=== PATIENT | female | born 1955 | race Caucasian/White ===

== ENCOUNTER 2016-09-13 19:35 | Emergency (ER) | payer BC | END 2016-09-13 21:10 | disposition left against medical advice (07) | LOC: ER 19:35 | DX: Z53.21 Procedure and treatment not carried out due to patient leaving prior to being seen by health care provider (principal) ==

== ENCOUNTER 2016-09-14 16:00 | Day surgery (SDC) | payer BC ==
[2016-09-14] MEDS ORDERED: PROMETHAZINE HCL INJ 25 MG/1 ML VIAL ONE (17:08)
[2016-09-14] MEDS ORDERED: NALOXONE HCL INJ/PF 0.4 MG/1 ML SDV ONE (17:08)
[2016-09-14] MEDS ORDERED: GLUCAGON,HUMAN RECOMB 1 MG INJ ONE (17:09)
[2016-09-14] MEDS ORDERED: FLUMAZENIL INJ 0.5 MG/5 ML VIAL IV ONE (17:09)
[2016-09-14] MEDS ORDERED: EPINEPHRINE INJ 1 MG/10 ML DISP.SYRIN ONE (17:09)
[2016-09-14] MEDS ORDERED: ONDANSETRON HCL INJ/PF 4 MG/2 ML SDV ONE (17:10)
[2016-09-14] MEDS: MIDAZOLAM 2 MG/2 ML INJ ONE ×3 (18:08→18:18)
[2016-09-14] MEDS: FENTANYL CITRATE INJ/PF 100 MCG/2 ML AMPUL ONE ×2 (18:12→18:27)
[2016-09-14 19:33] VITALS: BP 116/70
== END 2016-09-14 19:35 | disposition home or self-care (01) ==
LOC: END 16:00
PROVIDERS: ATTEND Internal Medicine Gastroenterology
PROC: 0FPB8DZ Removal of Intraluminal Device from Hepatobiliary Duct, Via Natural or Artificial Opening Endoscopic (ICD-10-PCS; principal; 2016-09-14 16:30)
PROC: 0F798ZZ Dilation of Common Bile Duct, Via Natural or Artificial Opening Endoscopic (ICD-10-PCS; 2016-09-14 16:30)
DX: K83.8 Other specified diseases of biliary tract (principal); K80.50 Calculus of bile duct without cholangitis or cholecystitis without obstruction; K58.9 Irritable bowel syndrome, unspecified; Z79.899 Other long term (current) drug therapy
CPT/HCPCS: 43264; 43262; 74328; J2250; J3010; J0171; J1610; J2310; J2405; J2550; J3490

== ENCOUNTER → 2016-09-14 | Outpatient (CLI) | payer BC ==
[2016-09-14 14:23] LABS: ABSOLUTE EOSINOPHILS # (AUTO) 0.1 10^3/uL (0.0-0.6); ABSOLUTE LYMPHOCYTES (AUTO) 1.2 10^3/uL (0.5-4.7); ABSOLUTE MONOCYTES (AUTO) 0.6 10^3/uL (0.1-1.4); ABSOLUTE NEUT (AUTO) 3.6 10^3/uL (1.7-8.2); BASOPHILS % (AUTO) 0.6 % (0-2); EOSINOPHILS % (AUTO) 2.2 % (0-6); HEMATOCRIT 39.9 % (36.0-47.0); HEMOGLOBIN 13.8 g/dL (12.0-15.5); HGB HCT DIFFERENCE 1.5; LYMPHOCYTES % (AUTO) 21.2 % (13-45); MEAN CORPUSCULAR HEMOGLOBIN 30.3 pg (27.0-33.4); MEAN CORPUSCULAR HGB CONC 34.5 g/dL (32.0-36.0); MEAN CORPUSCULAR VOLUME 88 fl (80-97); MONOCYTES % (AUTO) 11.6 % (3-13); RED BLOOD COUNT 4.55 10^6/uL (3.72-5.28); RED CELL DISTRIBUTION WIDTH 13.2 % (11.5-14.0); SEGMENTED NEUTROPHILS % (AUTO) 64.4 % (42-78); WHITE BLOOD COUNT 5.6 10^3/uL (4.0-10.5)
[2016-09-14 14:28] LABS: PROTHROMBIN TIME 13.1 SEC (11.4-15.4)
[2016-09-14 14:56] LABS: ALANINE AMINOTRANSFERASE 236 U/L (9-52); ALBUMIN 4.2 g/dL (3.5-5.0); ALKALINE PHOSPHATASE 211 U/L (38-126); AMYLASE 59 U/L (30-110); ANION GAP 14 (5-19); ASPARTATE AMINO TRANSFERASE 73 U/L (14-36); BILIRUBIN,TOTAL 3.9 mg/dL (0.2-1.3); BLOOD UREA NITROGEN 10 mg/dL (7-20); CALCIUM 9.8 mg/dL (8.4-10.2); CARBON DIOXIDE 26 mmol/L (22-30); CHLORIDE 102 mmol/L (98-107); CREATININE RESULT 0.76 mg/dL (0.52-1.25); GLUCOSE 95 mg/dL (75-110); LIPASE 135.1 U/L (23-300); POTASSIUM 4.4 mmol/L (3.6-5.0); SODIUM 142.3 mmol/L (137-145); TOTAL PROTEIN 7.3 g/dL (6.3-8.2)
--- NOTE | 2016-09-14 18:50 | Operative Report ---
Operative Report DATE OF SURGERY: 09/14/16 Operative Report: Pre-op diagnosis: Recurrent abdominal pain and jaundice Post-op diagnosis: 1. Large amount of common bile duct sludge and stone 2. Dilated common bile duct Surgery: ERCP with sphincterotomy and balloon sludge/stone extraction Medications: Versed 4mg Fentanyl 150mcg IV push Tissue removed: Procedure: After informed consent obtained from patient, the throat was sprayed with Hurricane and conscious sedation was achieved. The ERCP endoscope was then inserted into the esophagus blindly and advanced into the stomach. The duodenum was entered and the ampulla was identified. There was a small periampullar diverticulum and evidence of previous partial sphincterotomy. Using the triple-lumen sphincterotomy catheter the common bile duct was freely cannulated. A cholangiogram was obtained which showed multiple filling defects within the common bile duct which was also dilated. The sphincterotomy was then extended using the endocut mode. The catheter was removed over the guidewire before a 9-12 mm balloon catheter was inserted. The balloon was inflated to 12 mm in the proximal common bile duct and pulled down the duct. The duct was swept three more time. A balloon occlusion cholangiogram was normal. The pancreatic duct was intentionally not cannulated. Patient tolerated procedure well. Findings Common bile duct: Dilated with large amount of thick sludge and a small stone. Intrahepatic ducts: Slightly dilated Pancreatic duct: Not cannulated Plan: Follow-up LFTs OPERATION: .
--- NOTE | 2016-09-14 18:51 | PDOC DISCHARGE SUMMARY ---
Discharge Summary (SDC) - Discharge Final Diagnosis: Common bile duct sludge and stone Date of Surgery: 09/14/16 Condition: Stable Discharge Diet: Other (Comments) - Low-fat diet for two days Discharge Activity: Activity As Tolerated Report the Following to Your Physician Immediately: Nausea, Vomiting, Swelling
== END ==
LOC: LAB 13:58
PROVIDERS: ATTEND Internal Medicine Gastroenterology
DX: R10.13 Epigastric pain (principal)
CPT/HCPCS: 36415; 80048; 80076; 82150; 83690; 85025; 85610

== ENCOUNTER → 2016-09-24 | Outpatient (CLI) | payer BC ==
[2016-09-24 13:44] LABS: ALANINE AMINOTRANSFERASE 63 U/L (9-52); ALBUMIN 4.9 g/dL (3.5-5.0); ALKALINE PHOSPHATASE 235 U/L (38-126); ASPARTATE AMINO TRANSFERASE 29 U/L (14-36); BILIRUBIN,DIRECT 0.5 mg/dL (0.0-0.4); BILIRUBIN,TOTAL 0.8 mg/dL (0.2-1.3); TOTAL PROTEIN 7.8 g/dL (6.3-8.2)
== END ==
LOC: OD 12:25
PROVIDERS: ATTEND Internal Medicine Gastroenterology
DX: R94.5 Abnormal results of liver function studies (principal)
CPT/HCPCS: 36415; 80076

== ENCOUNTER → 2016-10-12 | Outpatient (CLI) | payer BC ==
[2016-10-12 16:36] LABS: ALANINE AMINOTRANSFERASE 29 U/L (9-52); ALBUMIN 4.3 g/dL (3.5-5.0); ALKALINE PHOSPHATASE 105 U/L (38-126); ASPARTATE AMINO TRANSFERASE 13 U/L (14-36); BILIRUBIN,DIRECT 0.4 mg/dL (0.0-0.4); BILIRUBIN,TOTAL 0.6 mg/dL (0.2-1.3)
== END ==
LOC: OD 15:40
PROVIDERS: ATTEND Physician Assistant Surgical
DX: R94.5 Abnormal results of liver function studies (principal)
CPT/HCPCS: 36415; 80076

== ENCOUNTER 2018-12-24 02:06 | Emergency (ER) | payer MEDICARE ==
[2018-12-24] MEDS ORDERED: PROPRANOLOL HCL 20 MG TABLET PO ONE (02:50)
--- NOTE | 2018-12-24 02:50 | ER Document Report ---
ED Cardiac - General Chief Complaint: Irregular Pulse Stated Complaint: REPORTS RAPID HEART RATE Time Seen by Provider: 12/24/18 02:22 Primary Care Provider: MINH VIDAL PA-C [COMMUNITY BASED STAFF] - Follow up as needed Notes: This is a pleasant 63-year-old female patient with history of SVT who came in in SVT. Bent over while doing some laundry and had sudden onset of rapid heart rate. No chest pain. Could not get herself out of it like she has in the past by coughing or holding her breath so had to come into the emergency department. Patient was seen on arrival. Heart rate was in the 140s. Spontaneously converted. Patient had taken some propranolol shortly prior to arrival. TRAVEL OUTSIDE OF THE [place] IN LAST 30 DAYS: No - HPI Patient complains to provider of: Palpitations Quality of pain: None - Related Data Allergies/Adverse Reactions: No Known Allergies Allergy (Verified 09/14/16 16:21) Past Medical History - General Information source: Patient - Social History Smoking Status: Current Every Day Smoker Cigarette use (# per day): Yes Frequency of alcohol use: None Drug Abuse: None Lives with: Spouse/Significant other Family History: Reviewed & Not Pertinent - Past Medical History Cardiac Medical History: Denies: Hx Coronary Artery Disease, Hx Heart Attack, Hx Hypertension Pulmonary Medical History: Denies: Hx Asthma, Hx Bronchitis, Hx COPD, Hx Pneumonia Neurological Medical History: Denies: Hx Cerebrovascular Accident, Hx Seizures Musculoskeletal Medical History: Denies Hx Arthritis Past Surgical History: Denies: Hx Hysterectomy - Immunizations Hx Diphtheria, Pertussis, Tetanus Vaccination: No Review of Systems - Review of Systems Notes: Constitutional: denies: Chills, Diaphoresis, Fever, Malaise, Weakness EENT: denies: Eye discharge, Blurred vision, Tearing, Double vision, Nose congestion, Nose discharge, Throat swelling, Mouth pain Cardiovascular: +Palpitations, +Heart racing, -Orthopnea, -Dyspnea, -Chest pain Respiratory: denies: Cough, Hurts to breathe, Wheezing, Shortness of breath Gastrointestinal: denies: Abdominal pain, Diarrhea, Nausea, Vomiting, Black stools, bright red blood in stool Genitourinary: denies: Burning, Dysuria, Discharge, Frequency, Flank pain, Hematuria Musculoskeletal: denies: Joint pain, Joint swelling, Muscle pain, Muscle stiffness, back pain Hematologic/Lymphatic: denies: Anemia, Easy bleeding, Easy bruising, Blood clots Neurological/Psychological: denies: Confusion, Dementia, Depression, Loss of consciousness Skin: No lesions, no masses, no skin breakdown, no abscesses Physical Exam - Vital signs Vitals: Temp Pulse Resp BP Pulse Ox 98 F 83 16 95/72 L 99 12/24/18 02:06 12/24/18 02:06 12/24/18 02:06 12/24/18 02:06 12/24/18 02:06 Interpretation: Normal - General General appearance: Appears well, Alert - HEENT Head: Normocephalic, Atraumatic Eyes: Normal Pupils: PERRL - Respiratory Respiratory status: No respiratory distress Chest status: Nontender Breath sounds: Normal Chest palpation: Normal - Cardiovascular Rhythm: Regular Heart sounds: Normal auscultation Murmur: No - Abdominal Inspection: Normal Distension: No distension Bowel sounds: Normal Tenderness: Nontender Organomegaly: No organomegaly - Back Back: Normal, Nontender - Extremities General upper extremity: Normal inspection, Nontender, Normal color, Normal ROM, Normal temperature General lower extremity: Normal inspection, Nontender, Normal color, Normal ROM, Normal temperature, Normal weight bearing. No: Jasmyn's sign - Neurological Neuro grossly intact: Yes Cognition: Normal Orientation: AAOx4 Annel Coma Scale Eye Opening: Spontaneous [place] Coma Scale Verbal: Oriented [place] Coma Scale Motor: Obeys Commands Ann[place] Coma Scale Total: 15 Speech: Normal Motor strength normal: LUE, RUE, LLE, RLE Sensory: Normal - Psychological Associated symptoms: Normal affect, Normal mood - Skin Skin Temperature: Warm Skin Moisture: Dry Skin Color: Normal Course - Re-evaluation Re-evalutation: 12/24/18 03:54 EKG #1: Sinus tachycardia with a heart rate in the 140s. Some ST depression indicative of demand ischemia. Normal QRS. EKG #2: Normal sinus rhythm. No ST segment elevation or depression. Normal T waves. Interpretation normal EKG. 12/24/18 03:55 And is asymptomatic at this time. Has spontaneously converted on her own. I am going to give her another dose of some propranolol at this time. She had no chest pain but she did have some demand rate related ST depression so would not be surprised if her troponin was slightly elevated. She has good outpatient follow-up. Likely be able to discharge shortly. 12/24/18 04:38 Laboratory 12/24/18 12/24/18 12/24/18 02:45 02:45 02:45 WBC 9.0 RBC 5.19 Hgb 15.7 H Hct 46.2 MCV 89 MCH 30.3 MCHC 34.0 RDW 13.6 Plt Count 240 Seg Neutrophils % 51.2 Lymphocytes % 37.5 Monocytes % 8.8 Eosinophils % 1.6 Basophils % 0.9 Absolute Neutrophils 4.6 Absolute Lymphocytes 3.4 Absolute Monocytes 0.8 Absolute Eosinophils 0.1 Absolute Basophils 0.1 Sodium 140.0 Potassium 4.6 Chloride 100 Carbon Dioxide 29 Anion Gap 11 BUN 17 Creatinine 0.96 Est GFR ( Amer) > 60 Est GFR (Non-Af Amer) 59 L Glucose 123 H Calcium 9.8 Total Bilirubin 0.4 Direct Bilirubin 0.3 Neonat Total Bilirubin Not Reportable Neonat Direct Bilirubin Not Reportable Neonat Indirect Bili Not Reportable AST 44 H ALT 41 Alkaline Phosphatase 105 Troponin I < 0.012 Total Protein 7.6 Albumin 4.6 TSH 12/24/18 02:45 WBC RBC Hgb Hct MCV MCH MCHC RDW Plt Count Seg Neutrophils % Lymphocytes % Monocytes % Eosinophils % Basophils % Absolute Neutrophils Absolute Lymphocytes Absolute Monocytes Absolute Eosinophils Absolute Basophils Sodium Potassium Chloride Carbon Dioxide Anion Gap BUN Creatinine Est GFR ( Amer) Est GFR (Non-Af Amer) Glucose Calcium Total Bilirubin Direct Bilirubin Neonat Total Bilirubin Neonat Direct Bilirubin Neonat Indirect Bili AST ALT Alkaline Phosphatase Troponin I Total Protein Albumin TSH 2.26 Patient has no recurrence of the SVT. Her labs are normal. She has propranolol at home and I am recommending that she take that twice a day. Will DC at this time. - Vital Signs Vital signs: Temp Pulse Resp BP Pulse Ox 98 F 83 16 126/88 H 97 12/24/18 02:06 12/24/18 02:06 12/24/18 04:01 12/24/18 04:00 12/24/18 04:01 - Laboratory Result Diagrams: 12/24/18 02:45 12/24/18 02:45 Laboratory results interpreted by me: 12/24/18 12/24/18 02:45 02:45 Hgb 15.7 H Est GFR (Non-Af Amer) 59 L Glucose 123 H AST 44 H Discharge - Discharge Clinical Impression: SVT (supraventricular tachycardia) Condition: Good Disposition: HOME, SELF-CARE Instructions: Paroxysmal Supraventricular Tachycardia ([facility]) Additional Instructions: At the first symptom of SVT take 10 to 20 mg of your propranolol. Try your vagal maneuvers such as breath-holding and bearing down. If unable to break the tachycardia then you will need to return to the emergency department. Follow-up with your community health outreach worker. Return for any worsening symptoms or concerns. Referrals: MINH VIDAL PA-C [COMMUNITY BASED STAFF] - Follow up as needed
[2018-12-24 03:26] LABS: ABSOLUTE BASOPHILS # (AUTO) 0.1 10^3/uL (0.0-0.2); ABSOLUTE EOSINOPHILS # (AUTO) 0.1 10^3/uL (0.0-0.6); ABSOLUTE LYMPHOCYTES (AUTO) 3.4 10^3/uL (0.5-4.7); ABSOLUTE MONOCYTES (AUTO) 0.8 10^3/uL (0.1-1.4); ABSOLUTE NEUT (AUTO) 4.6 10^3/uL (1.7-8.2); BASOPHILS % (AUTO) 0.9 % (0-2); EOSINOPHILS % (AUTO) 1.6 % (0-6); HEMATOCRIT 46.2 % (36.0-47.0); HEMOGLOBIN 15.7 g/dL (12.0-15.5); LYMPHOCYTES % (AUTO) 37.5 % (13-45); MEAN CORPUSCULAR HEMOGLOBIN 30.3 pg (27.0-33.4); MEAN CORPUSCULAR VOLUME 89 fl (80-97); MONOCYTES % (AUTO) 8.8 % (3-13); PLATELET COUNT 240 10^3/uL (150-450); RED BLOOD COUNT 5.19 10^6/uL (3.72-5.28); RED CELL DISTRIBUTION WIDTH 13.6 % (11.5-14.0); SEGMENTED NEUTROPHILS % (AUTO) 51.2 % (42-78); TOTAL CELLS COUNTED % (AUTO) 100 %
[2018-12-24 03:41] LABS: ALANINE AMINOTRANSFERASE 41 U/L (9-52); ALBUMIN 4.6 g/dL (3.5-5.0); ALKALINE PHOSPHATASE 105 U/L (38-126); ANION GAP 11 (5-19); ASPARTATE AMINO TRANSFERASE 44 U/L (14-36); BILIRUBIN,DIRECT 0.3 mg/dL (0.0-0.4); BILIRUBIN,TOTAL 0.4 mg/dL (0.2-1.3); BLOOD UREA NITROGEN 17 mg/dL (7-20); CALCIUM 9.8 mg/dL (8.4-10.2); CARBON DIOXIDE 29 mmol/L (22-30); CHLORIDE 100 mmol/L (98-107); GLUCOSE 123 mg/dL (75-110); POTASSIUM 4.6 mmol/L (3.6-5.0); TOTAL PROTEIN 7.6 g/dL (6.3-8.2)
[2018-12-24 05:00] VITALS: BP 148/72
--- NOTE | 2018-12-24 19:02 | EKG REPORT ---
SEVERITY:- NORMAL ECG - SINUS RHYTHM RSR' IN V1. : Confirmed by: Sarah Hollingsworth MD 24-Dec-2018 19:01:49
--- NOTE | 2018-12-24 19:03 | EKG REPORT ---
SEVERITY:- ABNORMAL ECG - SINUS TACHYCARDIA RIGHT AXIS DEVIATION ST DEPRESSION, PROBABLY RATE RELATED : Confirmed by: Sarah Hollingsworth MD 24-Dec-2018 19:01:53
== END 2018-12-24 04:58 | disposition home or self-care (01) ==
LOC: ER 02:06
DX: I47.1 Supraventricular tachycardia (principal); R00.2 Palpitations; F17.210 Nicotine dependence, cigarettes, uncomplicated
CPT/HCPCS: 93005; 99285; 36415; 84443; 85025; 80053; 84484; 93010; A9270; J3490

== ENCOUNTER → 2019-02-21 | Outpatient (CLI) | payer MEDICARE ==
[2019-02-21 11:54] LABS: ABSOLUTE BASOPHILS # (AUTO) 0.1 10^3/uL (0.0-0.2); ABSOLUTE EOSINOPHILS # (AUTO) 0.1 10^3/uL (0.0-0.6); ABSOLUTE MONOCYTES (AUTO) 0.7 10^3/uL (0.1-1.4); ABSOLUTE NEUT (AUTO) 5.4 10^3/uL (1.7-8.2); BASOPHILS % (AUTO) 0.9 % (0-2); EOSINOPHILS % (AUTO) 0.7 % (0-6); HEMATOCRIT 44.9 % (36.0-47.0); HEMOGLOBIN 15.4 g/dL (12.0-15.5); LYMPHOCYTES % (AUTO) 24.5 % (13-45); MEAN CORPUSCULAR HEMOGLOBIN 30.2 pg (27.0-33.4); MEAN CORPUSCULAR HGB CONC 34.3 g/dL (32.0-36.0); MEAN CORPUSCULAR VOLUME 88 fl (80-97); MONOCYTES % (AUTO) 8.1 % (3-13); PLATELET COUNT 236 10^3/uL (150-450); RED BLOOD COUNT 5.09 10^6/uL (3.72-5.28); RED CELL DISTRIBUTION WIDTH 13.5 % (11.5-14.0); SEGMENTED NEUTROPHILS % (AUTO) 65.8 % (42-78); TOTAL CELLS COUNTED % (AUTO) 100 %; WHITE BLOOD COUNT 8.3 10^3/uL (4.0-10.5)
[2019-02-21 12:16] LABS: ANION GAP 10 (5-19); BLOOD UREA NITROGEN 15 mg/dL (7-20); CALCIUM 10.1 mg/dL (8.4-10.2); CARBON DIOXIDE 27 mmol/L (22-30); CHLORIDE 103 mmol/L (98-107); GLUCOSE 106 mg/dL (75-110); POTASSIUM 4.7 mmol/L (3.6-5.0)
== END ==
LOC: LAB 11:35
PROVIDERS: ATTEND Physician Assistant
DX: R10.32 Left lower quadrant pain (principal)
CPT/HCPCS: 36415; 80048; 85025